=== PATIENT | male | born 1995 | race Caucasian/White ===

== ENCOUNTER 2018-07-21 20:13 | Emergency (ER) | payer BC ==
[2018-07-21] MEDS ORDERED: Diphtheria,Pertussis(Acell),Tetanus Vaccine 0.5 ML Syringe IM ONE (20:22)
[2018-07-21] MEDS ORDERED: Lidocaine 1% 20 ML MDV INJECT ONE (20:23)
--- NOTE | 2018-07-21 20:25 | EDM.PDOC ---
ED HPI GENERAL MEDICAL PROBLEM - General Chief Complaint: Laceration Stated Complaint: PT CUT HAND Time Seen by Provider: 07/21/18 20:20 - History of Present Illness INITIAL COMMENTS - FREE TEXT/NARRATIVE: HISTORY AND PHYSICAL: History of present illness: Patient is a 22-year-old white male presents a concern of injury to his left hand in the form of a laceration this occurred when he was cutting some wood he denies other trauma concern and is unsure of his tetanus status Review of systems: As per history of present illness and below otherwise all systems reviewed and negative. Past medical history: As per history of present illness and as reviewed below otherwise noncontributory. Surgical history: As per history of present illness and as reviewed below otherwise noncontributory. Social history: No reported history of drug or alcohol abuse. Family history: As per history of present illness and as reviewed below otherwise noncontributory. Physical exam: HEENT: Atraumatic, normocephalic, pupils reactive, negative for conjunctival pallor or scleral icterus, mucous membranes moist, throat clear, neck supple, nontender, trachea midline. Lungs: Clear to auscultation, breath sounds equal bilaterally, chest nontender. Heart: S1S2, regular, negative for clicks, rubs, or JVD. Abdomen: Soft, nondistended, nontender. Negative for masses or hepatosplenomegaly. Negative for costovertebral tenderness. Pelvis: Stable nontender. Genitourinary: Deferred. Rectal: Deferred. Extremities: Patient has approximately 2 cm moderate depth laceration of the proximal aspect of the second digit on the dorsal surface there is no tendon involvement is good hemostasis CMS and neurovascular exam is unremarkable Neuro: Awake, alert, oriented. Cranial nerves II through XII unremarkable. Cerebellum unremarkable. Motor and sensory unremarkable throughout. Exam nonfocal. Diagnostics: None Therapeutics: Tetanus wound was anesthetized with 1% lidocaine without epinephrine irrigated with copious amounts 0.9 normal saline prepped and draped in sterile manner closed with 4-0 nylon interrupted sutures volar splint was applied after bacitracin occlusive dressing Impression: [] Definitive disposition and diagnosis as appropriate pending reevaluation and review of above. left hand Pain Score (Numeric/FACES): 3 - Related Data Allergies Allergy/AdvReac Type Severity Reaction Status Date / Time ibuprofen Allergy Swelling Verified 07/21/18 20:23 Home Meds: Home Meds . [No Known Home Meds] 07/21/18 [History] ED ROS GENERAL - Review of Systems Review Of Systems: ROS reveals no pertinent complaints other than HPI. ED EXAM, SKIN/RASH Exam: See Below (See dictation) Course - Vital Signs Last Recorded V/S: Last Vital Signs Temp 36.4 C 07/21/18 20:13 Pulse 85 07/21/18 20:13 Resp 18 07/21/18 20:13 BP 150/75 H 07/21/18 20:13 Pulse Ox 96 07/21/18 20:13 - Orders/Labs/Meds Orders: Active Orders 24 hr Category Date Time Status Vaccines to be Administered [RC] PER UNIT ROUTINE Care 07/21/18 20:23 Active Meds: Medications Discontinued Medications Generic Name Dose Route Start Last Admin Trade Name Frerivera PRN Reason Stop Dose Admin Diphtheria/Tetanus/Acell Pertussis 0.5 ml 07/21/18 20:22 07/21/18 20:34 Adacel IM 07/21/18 20:23 0.5 ml .ONCE ONE Administration Lidocaine HCl Confirm 07/21/18 20:28 07/21/18 20:34 Xylocaine-Mpf 1% Administered 07/21/18 20:29 10 mls/hr Dose Administration 10 mls @ as directed .ROUTE .STK-MED ONE Lidocaine HCl 20 ml 07/21/18 20:23 07/21/18 20:38 Xylocaine 1% INJECT 07/21/18 20:24 Not Given ONETIME ONE Departure - Departure Time of Disposition: 21:37 Disposition: Home, Self-Care 01 Condition: Good Clinical Impression: Laceration - Discharge Information Instructions: Laceration Care, Adult Referrals: PCP,None [Primary Care Provider] - Forms: ED Department Discharge Additional Instructions: The following information is given to patients seen in the emergency department who are being discharged to home. This information is to outline your options for follow-up care. We provide all patients seen in our emergency department with a follow-up referral. The need for follow-up, as well as the timing and circumstances, are variable depending upon the specifics of your emergency department visit. If you don't have a primary care physician on staff, we will provide you with a referral. We always advise you to contact your personal physician following an emergency department visit to inform them of the circumstance of the visit and for follow-up with them and/or the need for any referrals to a consulting specialist. The emergency department will also refer you to a specialist when appropriate. This referral assures that you have the opportunity for followup care with a specialist. All of these measure are taken in an effort to provide you with optimal care, which includes your followup. Under all circumstances we always encourage you to contact your private physician who remains a resource for coordinating your care. When calling for followup care, please make the office aware that this follow-up is from your recent emergency room visit. If for any reason you are refused follow-up, please contact the [facility] emergency department at and asked to speak to the emergency department charge nurse. Keflex as prescribed as directed suture removal in 14 days return as needed as discussed - My Orders Last 24 Hours: My Active Orders 07/21/18 20:23 Vaccines to be Administered [RC] PER UNIT ROUTINE - Assessment/Plan Last 24 Hours: My Active Orders 07/21/18 20:23 Vaccines to be Administered [RC] PER UNIT ROUTINE
--- NOTE | 2018-07-21 21:36 | CR ---
INDICATION: Left hand pain and injury. TECHNIQUE: Two-view. FINDINGS: No fracture is visualized of the left hand. No radiopaque foreign body is seen. The joint spaces appear to be preserved. IMPRESSION: No fracture or radiopaque foreign body is seen of the left hand. Dictated by Pepe Cervantes MD @ 07/21/2018 9:33:57 PM Dictated by: Pepe Cervantes MD @ 07/21/2018 21:34:06 (Electronically Signed)
== END 2018-07-21 22:00 | disposition home or self-care (01) ==
LOC: MW.ED 20:13
DX: S61.211A Laceration without foreign body of left index finger without damage to nail, initial encounter (principal); Z23 Encounter for immunization; Z88.6 Allergy status to analgesic agent; W26.0XXA Contact with knife, initial encounter
CPT/HCPCS: 12001; 73120; 90471; 90715; 99283; J2001

== ENCOUNTER 2018-07-31 11:59 | Emergency (ER) | payer BC | END 2018-07-31 12:21 | disposition home or self-care (01) | LOC: MW.ED 11:59 | DX: Z53.21 Procedure and treatment not carried out due to patient leaving prior to being seen by health care provider (principal) ==

== ENCOUNTER 2022-05-23 21:11 | Emergency (ER) | payer BC ==
[2022-05-23] MEDS ORDERED: Ondansetron 4 MG/2 ML SDV ONE (21:16)
[2022-05-23] MEDS ORDERED: Ondansetron 4 MG/2 ML SDV IVPUSH ONE (21:17)
[2022-05-23] MEDS ORDERED: Dextrose 5%-Lactated Ringers 1,000 ML IV STA ×2 (21:17→22:20)
[2022-05-23] MEDS ORDERED: diphenhydrAMINE 50 MG/ML SDV IVPUSH ONE (21:44)
[2022-05-23 22:15] LABS: BLOOD UREA NITROGEN,BUN 10 mg/dL (7.0-18.0); CARBON DIOXIDE,CO2 22.5 mmol/L (21.0-32.0); CHLORIDE,CL 102 mmol/L (98-107); GLUCOSE RANDOM 96 mg/dL (74-106); POTASSIUM,K 2.8 mmol/L (3.5-5.1); SODIUM,NA 139 mmol/L (136-148)
[2022-05-23 22:17] LABS: ESTIMATED GFR 96 mL/min (>60)
[2022-05-23] MEDS: Meclizine 25 MG Tab PO ONE (22:26)
[2022-05-23] MEDS: Potassium Chloride 10% 20 MEQ/15 ML Soln 30 ML UD Cup PO ONE ×2 (22:26→22:56)
[2022-05-23] MEDS ORDERED: Haloperidol Lactate 5 MG/ML SDV IM ONE (22:28)
[2022-05-23] MEDS ORDERED: Potassium Chloride 20 MEQ in Premix Bag 1 BAG IV ONE (22:28)
[2022-05-23] MEDS ORDERED: Haloperidol Lactate 5 MG/ML SDV IM STA (22:29)
[2022-05-23] MEDS ORDERED: Iopamidol 755 MG/ML 500 ML Multipack Bottle IVPUSH STA (23:31)
[2022-05-24] MEDS ORDERED: Potassium Chloride 10% 20 MEQ/15 ML Soln 30 ML UD Cup PO ONE (00:29)
[2022-05-24] MEDS ORDERED: Meclizine 25 MG Tab PO ONE (00:30)
[2022-05-24] MEDS: Meclizine 25 MG Tab PO ONE (00:39)
== END 2022-05-24 00:39 | disposition home or self-care (01) ==
LOC: MW.ED 21:11
DX: R42 Dizziness and giddiness (principal); Z88.6 Allergy status to analgesic agent; Z79.899 Other long term (current) drug therapy
CPT/HCPCS: 36415; 70450; 70496; 70498; 80053; 80307; 81003; 82803; 82947; 83735; 84443; 84484; 85025; 85610; 93005; 96361; 96365; 96372; 96375; 99285; A9270; J1200; J1630; J2405; J3480; J7121; Q9967